=== PATIENT | female | born 1995 | race Caucasian/White ===

== ENCOUNTER 2017-09-19 05:33 | Emergency (ER) | payer MEDICAID ==
[~2017-09-19] VITALS: Ht 170.2 cm; Wt 67.0 kg
[~2017-09-19 05:33] MED LIST: ALBU1.25 NEB
[2017-09-19] MEDS ORDERED: SODIUM CHLORIDE 0.9% 1,000 ML IV ONE (05:36)
[2017-09-19] MEDS ORDERED: ALBUTEROL/IPRATROPIUM 2.5MG/0.5MG, 3 ML NPPB SCH (06:00)
[2017-09-19] MEDS ORDERED: SODIUM CHLORIDE FLUSH 10ML SYR IVF ONE (06:00)
[2017-09-19] MEDS ORDERED: methylPREDNISolone SOD SUCC 125 MG/2 ML IVP ONE (06:00)
[2017-09-19 06:01] LABS: HEMATOCRIT 43.8 % (34.6-47.8); HEMOGLOBIN 14.8 g/dL (11.7-16.4); WHITE BLOOD COUNT 7.5 x10^3/uL (3.4-10)
[2017-09-19 06:14] LABS: BLOOD UREA NITROGEN 8 mg/dL (7-18)
[2017-09-19] MEDS ORDERED: POTASSIUM CHLORIDE 10% 20 MEQ/15 ML UDC ONE (06:33)
[2017-09-19 06:56] LABS: RAPID INFLUENZA A POSITIVE (Negative); RAPID INFLUENZA B Negative (Negative)
[2017-09-19] MEDS ORDERED: POTASSIUM CHLORIDE 10% 40 MEQ/30 ML UDC PO ONE (07:00)
[2017-09-19 08:02] VITALS: BP 103/68
[2017-09-19] MEDS ORDERED: ACETAMINOPHEN 325 MG TABLET ONE ×2 (08:27→08:34)
[2017-09-19] MEDS ORDERED: ACETAMINOPHEN 325 MG TABLET PO ONE (08:30)
== END 2017-09-19 08:40 | disposition home or self-care (01) ==
LOC: ED 05:47
DX: J45.41 Moderate persistent asthma with (acute) exacerbation (principal); J09.X2 Influenza due to identified novel influenza A virus with other respiratory manifestations; E87.6 Hypokalemia
CPT/HCPCS: 36415; 71010; 80048; 82040; 83605; 85025; 87040; 87400; 93005; 94640; 96361; 96374; 99285; J2930; J7030; J7620

== ENCOUNTER 2018-09-21 23:18 | Emergency (ER) | payer MEDICAID ==
[~2018-09-21] VITALS: Ht 170.2 cm; Wt 70.1 kg
[2018-09-21] MEDS ORDERED: GLUCAGON 1 MG ONE (23:39)
[2018-09-22] MEDS ORDERED: GLUCAGON 1 MG IVPush ONE
[2018-09-22] MEDS ORDERED: SODIUM CHLORIDE FLUSH 10ML SYR IVF ONE
[2018-09-22] MEDS ORDERED: KETAMINE 50 MG/ML, 10ML ONE (00:20)
[2018-09-22] MEDS ORDERED: KETAMINE 100 MG/ML, 5ML IV ONE ×2 (00:30→01:30)
[2018-09-22 02:45] VITALS: BP 112/74
== END 2018-09-22 03:10 | disposition home or self-care (01) ==
LOC: ED 09-22 00:18
DX: T18.128A Food in esophagus causing other injury, initial encounter (principal); K20.9 Esophagitis, unspecified; Y93.89 Activity, other specified; Y99.8 Other external cause status; Y92.89 Other specified places as the place of occurrence of the external cause
CPT/HCPCS: 43247; 96374; 99152; 99285; J1610

== ENCOUNTER 2019-03-17 01:33 | Emergency (ER) | payer MEDICAID ==
[~2019-03-17] VITALS: Ht 170.2 cm; Wt 73.6 kg
[2019-03-17] MEDS ORDERED: IBUPROFEN 600 MG TABLET PO ONE (02:00)
[2019-03-17] MEDS ORDERED: IBUPROFEN 600 MG TABLET ONE (02:12)
--- NOTE | 2019-03-17 02:47 | NUR ---
pt d/c with d/c summary and script. all questions answered. pt ambulates to registration desk with steady gait for d/c home with mother. pt and family deny any other needs pertaining to this visit. vss at time of d/c.
[2019-03-17 02:51] VITALS: BP 128/84
== END 2019-03-17 03:01 | disposition home or self-care (01) ==
LOC: ED 02:45
DX: S69.91XA Unspecified injury of right wrist, hand and finger(s), initial encounter (principal); J45.909 Unspecified asthma, uncomplicated; W86.0XXA Exposure to domestic wiring and appliances, initial encounter; Y93.89 Activity, other specified; Y92.009 Unspecified place in unspecified non-institutional (private) residence as the place of occurrence of the external cause; Y99.8 Other external cause status
CPT/HCPCS: 93005; 99283

== ENCOUNTER 2019-04-11 23:31 | Emergency (ER) | payer MEDICAID ==
[~2019-04-11] VITALS: Ht 170.2 cm; Wt 73.3 kg
[2019-04-12 00:05] VITALS: BP 137/99
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
[2019-04-12] MEDS ORDERED: SODIUM CHLORIDE 0.9% 1,000ML IVBOLUS ONE (00:30)
[2019-04-12] MEDS ORDERED: ACETAMINOPHEN 500 MG TABLET PO ONE (00:30)
--- NOTE | 2019-04-12 00:33 | NUR ---
PT WITH IV PLACED AND AWAITING CTA
[2019-04-12 00:37] LABS: BASOPHILS # (AUTO) 0.03 x10^3/uL (0-0.1); BASOPHILS % (AUTO) 0 % (0-1); EOSINOPHILS # (AUTO) 1.23 x10^3/uL (0-0.4); EOSINOPHILS % (AUTO) 12 % (1-7); LYMPHOCYTES % (AUTO) 32 % (22-44); MD NO; MEAN CORPUSCULAR HEMOGLOBIN 27.7 pg (27.0-34.8); MEAN CORPUSCULAR HGB CONC 32.6 g/dL (32.4-35.8); MEAN PLATELET VOLUME 8.3 fL (7.4-10.4); MONOCYTES # (AUTO) 0.73 x10^3/uL (0.2-0.8); MONOCYTES % (AUTO) 7 % (2-9); NEUTROPHILS # (AUTO) 4.89 x10^3/uL (1.8-6.8); NEUTROPHILS % (AUTO) 48 % (42-75); PLATELET COUNT 316 x10^3/uL (130-400); RED BLOOD COUNT 5.74 x10^6/uL (3.82-5.3)
[2019-04-12 00:49] LABS: INTERNATIONAL NORMALIZED RATIO 0.94 (0.93-1.1); PROTHROMBIN TIME 9.9 Seconds (9.6-11.5)
[2019-04-12 00:50] LABS: ALBUMIN 4.1 g/dL (3.4-5.0); ANION GAP 7 mmol/L (5-15); CALCIUM 8.6 mg/dL (8.5-10.1); CHLORIDE 110 mmol/L (98-107); CREATININE 0.81 mg/dL (0.55-1.02)
[2019-04-12 00:54] LABS: TROPONIN I < 0.015 ng/mL (0.000-0.045)
[2019-04-12] MEDS ORDERED: ACETAMINOPHEN 500 MG TABLET ONE (01:07)
[2019-04-12] MEDS ORDERED: OMNIPAQUE 350 MG/ML, 100ML BOTTLE ONE (01:28)
--- NOTE | 2019-04-12 01:39 | NUR ---
PT BACK FROM CTA AND AWAITING ERP RECHECK.
== END 2019-04-12 02:26 | disposition home or self-care (01) ==
LOC: ED 04-12 00:10
DX: M79.661 Pain in right lower leg (principal); R07.89 Other chest pain; R05 Cough; J45.909 Unspecified asthma, uncomplicated
CPT/HCPCS: 36415; 71275; 80048; 82040; 83880; 84484; 84703; 85025; 85610; 85730; 93005; 93971; 99284; J7030; Q9967

== ENCOUNTER 2019-04-24 22:53 | Emergency (ER) | payer MEDICAID ==
[~2019-04-24] VITALS: Ht 170.2 cm; Wt 73.5 kg
[2019-04-24] MEDS ORDERED: ONDANSETRON 2MG/ML, 2ML IVPush ONE (23:30)
[2019-04-24] MEDS ORDERED: MORPHINE SULFATE 4 MG/ML, 1ML IVPush PRN (23:30)
[2019-04-24] MEDS ORDERED: SODIUM CHLORIDE 0.9% 1,000ML IVBOLUS ONE (23:30)
[2019-04-24] MEDS ORDERED: ACETAMINOPHEN 500 MG TABLET PO ONE (23:30)
[2019-04-24] MEDS ORDERED: SODIUM CHLORIDE FLUSH 10ML SYR IVF ONE (23:30)
[2019-04-24 23:38] LABS: BASOPHILS # (AUTO) 0.04 x10^3/uL (0-0.1); BASOPHILS % (AUTO) 0 % (0-1); EOSINOPHILS % (AUTO) 3 % (1-7); LYMPHOCYTES # (AUTO) 1.84 x10^3/uL (1-3.4); LYMPHOCYTES % (AUTO) 18 % (22-44); MD NO; MEAN CORPUSCULAR HEMOGLOBIN 28.1 pg (27.0-34.8); MEAN CORPUSCULAR HGB CONC 33.2 g/dL (32.4-35.8); MEAN CORPUSCULAR VOLUME 84.4 fL (80-100); MONOCYTES # (AUTO) 1.25 x10^3/uL (0.2-0.8); MONOCYTES % (AUTO) 12 % (2-9); NEUTROPHILS # (AUTO) 6.78 x10^3/uL (1.8-6.8); NEUTROPHILS % (AUTO) 67 % (42-75); PLATELET COUNT 302 x10^3/uL (130-400); RED BLOOD COUNT 5.19 x10^6/uL (3.82-5.3); RED CELL DISTRIBUTION WIDTH 13.8 % (9.6-15.2)
[2019-04-24 23:48] LABS: ALANINE AMINOTRANSFERASE 19 U/L (12-78); ALBUMIN 3.6 g/dL (3.4-5.0); ANION GAP 6 mmol/L (5-15); CALCIUM 8.8 mg/dL (8.5-10.1); CHLORIDE 108 mmol/L (98-107); CREATININE 0.86 mg/dL (0.55-1.02)
[2019-04-24] MEDS ORDERED: ONDANSETRON 2MG/ML, 2ML ONE (23:48)
[2019-04-24] MEDS ORDERED: ACETAMINOPHEN 500 MG TABLET ONE (23:48)
[2019-04-24 23:51] LABS: ALKALINE PHOSPHATASE 75 U/L (45-117); BILIRUBIN,TOTAL 0.8 mg/dL (0.2-1.0); TOTAL PROTEIN 7.6 g/dL (6.4-8.2)
[2019-04-25] MEDS ORDERED: RACEPINEPHRINE INH 2.25%, 0.5ML ONE (01:06)
[2019-04-25 01:51] VITALS: BP 115/62
[2019-04-25] MEDS ORDERED: OMNIPAQUE 350 MG/ML, 100ML BOTTLE ONE (04:15)
== END 2019-04-25 01:53 | disposition home or self-care (01) ==
LOC: ED 04-25 00:02
DX: K04.7 Periapical abscess without sinus (principal); J45.909 Unspecified asthma, uncomplicated
CPT/HCPCS: 36415; 70491; 80053; 83605; 84145; 85025; 96374; 99284; J2405; J7030; Q9967

== ENCOUNTER 2019-04-25 15:32 | Inpatient (IN) | payer MEDICAID ==
[~2019-04-25] VITALS: Ht 170.2 cm; Wt 68.6 kg
[2019-04-25] MEDS ORDERED: SODIUM CHLORIDE FLUSH 10ML SYR IVF ONE (16:30)
[2019-04-25 16:31] LABS: BASOPHILS # (AUTO) 0.02 x10^3/uL (0-0.1); BASOPHILS % (AUTO) 0 % (0-1); EOSINOPHILS # (AUTO) 0.57 x10^3/uL (0-0.4); EOSINOPHILS % (AUTO) 6 % (1-7); LYMPHOCYTES # (AUTO) 1.52 x10^3/uL (1-3.4); LYMPHOCYTES % (AUTO) 17 % (22-44); MD NO; MEAN CORPUSCULAR VOLUME 84.8 fL (80-100); MEAN PLATELET VOLUME 7.8 fL (7.4-10.4); MONOCYTES # (AUTO) 0.84 x10^3/uL (0.2-0.8); MONOCYTES % (AUTO) 9 % (2-9); NEUTROPHILS # (AUTO) 6.28 x10^3/uL (1.8-6.8); NEUTROPHILS % (AUTO) 68 % (42-75); PLATELET COUNT 312 x10^3/uL (130-400); RED BLOOD COUNT 5.07 x10^6/uL (3.82-5.3); RED CELL DISTRIBUTION WIDTH 13.6 % (9.6-15.2)
[2019-04-25 16:36] LABS: ALBUMIN 3.5 g/dL (3.4-5.0); ANION GAP 4 mmol/L (5-15); CALCIUM 8.9 mg/dL (8.5-10.1); CHLORIDE 110 mmol/L (98-107); CREATININE 0.82 mg/dL (0.55-1.02)
--- NOTE | 2019-04-25 17:09 | NUR ---
CALL DR. BRAGA WHEN ROOMED
[2019-04-25] MEDS ORDERED: methylPREDNISolone SOD SUCC 125 MG/2 ML IVP ONE (18:30)
[2019-04-25] MEDS ORDERED: CLINDAMYCIN PMX 600MG/50ML 50 ML IVPB ONE (18:30)
[2019-04-25] MEDS ORDERED: methylPREDNISolone SOD SUCC 125 MG/2 ML ONE (18:44)
[2019-04-25] MEDS ORDERED: IBUPROFEN 800 MG TABLET ONE (18:44)
[2019-04-25] MEDS ORDERED: CLINDAMYCIN PMX 600MG/50ML 50 ML ONE (18:44)
--- NOTE | 2019-04-25 18:57 | NUR ---
PT PRESENTING TO ER FOR JAW PAIN AND SWELLING WITH POSSIBLE ABSCESS UNDER TONGUE STARTING THURSDAY. SEEN HERE YESTERDAY AND INSTRUCTED TO SEE DENTIST. SEEN BY DENTIST AND ORAL SURGEON TODAY AND INSTRUCTED TO COME HERE FOR IV ABX. IV PLACED, LABS DRAWN IN PIT. CONNECTED TO MONITORING, TACHY HR, SLIGHT FEVER. PT MEDICATED WITH MOTRIN FROM FEVER AND PAIN CONTROL, ABX STARTED. AWAITING CT AND RESULTS FOR DISPO. AT BEDSIDE. CALL LIGHT WITHIN REACH
[2019-04-25] MEDS ORDERED: IBUPROFEN 800 MG TABLET PO ONE (19:00)
--- NOTE | 2019-04-25 19:11 | NUR ---
CT CALLED TO F/U ON TESTING DELAY, NO ANSWER. WILL CALL BACK
--- NOTE | 2019-04-25 19:34 | NUR ---
DELAY IN CT D/T ORAL SURGEON REQUESTING ADDITIONAL CT WITH, HOWEVER PT HAD CT WITH CONTRAST YESTERDAY. CALL OUT TO ORAL SURGEON TO SEE IF TEST NEEDS TO BE REPEATED OR THE ONE FROM YESTERDAY WILL WORK. PT REPORTING 3 CT SCANS IN THE LAST MONTH, PT ALSO BREAST FEEDING CURRENTLY
--- NOTE | 2019-04-25 19:47 | NUR ---
CONFIRMATION RECEIVED FROM ORAL SURGEON TO REPEAT CT WITH CONTRAST. CT UPDATED STATES PT WILL BE NEXT FOR TESTING
--- NOTE | 2019-04-25 20:10 | NUR ---
PT TAKEN TO CT
[2019-04-25] MEDS ORDERED: SODIUM CHLORIDE FLUSH 10ML SYR IVF PRN (20:30)
--- NOTE | 2019-04-25 20:37 | NUR ---
REPORT GIVEN TO ANITA RN, PT READY FOR TRANSPORT TO FLOOR
[2019-04-25 21:54] VITALS: BP 120/85
[2019-04-26] MEDS ORDERED: ACETAMINOPHEN 325 MG TABLET PO PRN
[2019-04-26] MEDS ORDERED: OXYcodone/APAP 5/325MG TABLET PO PRN
[2019-04-26] MEDS ORDERED: POLYETHYLENE GLYCOL 17 GM PACKET PO PRN
[2019-04-26] MEDS ORDERED: morphine SULFATE 10 MG/ML, 1ML IVPush PRN
[2019-04-26] MEDS: FAMOTIDINE 20 MG TABLET PO SCH ×3 (00:15→22:04)
[2019-04-26] MEDS: LACTATED RINGERS 1,000 ML IV SCH ×2 (00:15→15:17)
[2019-04-26] MEDS: CLINDAMYCIN PMX 600MG/50ML 50 ML IV SCH ×4 (00:15→18:34)
[2019-04-26] MEDS ORDERED: ALBUTEROL SULFATE 2.5 MG/3 ML NPPB PRN (00:30)
[2019-04-26 01:48] VITALS: BP 117/65
[2019-04-26 07:27] VITALS: BP 107/59
[2019-04-26 08:46] LABS: BASOPHILS # (AUTO) 0.01 x10^3/uL (0-0.1); BASOPHILS % (AUTO) 0 % (0-1); EOSINOPHILS % (AUTO) 0 % (1-7); LYMPHOCYTES # (AUTO) 0.75 x10^3/uL (1-3.4); LYMPHOCYTES % (AUTO) 8 % (22-44); MD NO; MEAN CORPUSCULAR HEMOGLOBIN 27.5 pg (27.0-34.8); MEAN CORPUSCULAR HGB CONC 32.5 g/dL (32.4-35.8); MEAN CORPUSCULAR VOLUME 84.4 fL (80-100); MEAN PLATELET VOLUME 7.9 fL (7.4-10.4); MONOCYTES # (AUTO) 0.12 x10^3/uL (0.2-0.8); MONOCYTES % (AUTO) 1 % (2-9); NEUTROPHILS # (AUTO) 8.49 x10^3/uL (1.8-6.8); NEUTROPHILS % (AUTO) 91 % (42-75); PLATELET COUNT 320 x10^3/uL (130-400); RED CELL DISTRIBUTION WIDTH 13.9 % (9.6-15.2)
[2019-04-26 08:53] LABS: ALBUMIN 3.2 g/dL (3.4-5.0); ANION GAP 7 mmol/L (5-15); CHLORIDE 110 mmol/L (98-107)
[2019-04-26 08:54] LABS: CREATININE 0.68 mg/dL (0.55-1.02)
[2019-04-26] MEDS ORDERED: methylPREDNISolone SOD SUCC 125 MG/2 ML IVPush SCH (09:00)
[2019-04-26] MEDS: ONDANSETRON 2MG/ML, 2ML IVPush PRN (13:32)
[2019-04-26 15:07] VITALS: BP 110/74
[2019-04-26] MEDS: IBUPROFEN 200 MG TABLET PO PRN (18:42)
[2019-04-26 19:02] VITALS: BP 106/65
[2019-04-27 00:56] VITALS: BP 105/70
[2019-04-27] MEDS: IBUPROFEN 200 MG TABLET PO PRN (01:12)
[2019-04-27] MEDS: CLINDAMYCIN PMX 600MG/50ML 50 ML IV SCH (04:02)
[2019-04-27 05:34] LABS: MEAN CORPUSCULAR HEMOGLOBIN 28.4 pg (27.0-34.8); MEAN CORPUSCULAR HGB CONC 33.1 g/dL (32.4-35.8); MEAN CORPUSCULAR VOLUME 85.9 fL (80-100); MEAN PLATELET VOLUME 8.4 fL (7.4-10.4); PLATELET COUNT 329 x10^3/uL (130-400); RED BLOOD COUNT 4.58 x10^6/uL (3.82-5.3); RED CELL DISTRIBUTION WIDTH 13.9 % (9.6-15.2)
[2019-04-27 05:43] LABS: CHLORIDE 109 mmol/L (98-107)
[2019-04-27 05:53] LABS: ALBUMIN 2.9 g/dL (3.4-5.0); ANION GAP 8 mmol/L (5-15); CALCIUM 8.3 mg/dL (8.5-10.1); CREATININE 0.63 mg/dL (0.55-1.02)
[2019-04-27 06:14] LABS: BASOPHILS % (AUTO) 0 % (0-1); EOSINOPHILS % (AUTO) 0 % (1-7); LYMPHOCYTES # (AUTO) 1.23 x10^3/uL (1-3.4); LYMPHOCYTES % (AUTO) 7 % (22-44); MD NO; MONOCYTES # (AUTO) 1.03 x10^3/uL (0.2-0.8); MONOCYTES % (AUTO) 6 % (2-9); NEUTROPHILS # (AUTO) 16.61 x10^3/uL (1.8-6.8); NEUTROPHILS % (AUTO) 88 % (42-75)
[2019-04-27 07:03] VITALS: BP 111/65
[2019-04-27] MEDS: ONDANSETRON 2MG/ML, 2ML IVPush PRN (07:17)
[2019-04-27] MEDS: FAMOTIDINE 20 MG TABLET PO SCH (09:59)
[2019-04-27] MEDS: LACTATED RINGERS 1,000 ML IV SCH (09:59)
[2019-04-27] MEDS: CLINDAMYCIN 300 MG CAPSULE PO SCH ×2 (10:55→18:03)
[2019-04-27 13:15] VITALS: BP 108/61
[2019-04-27] MEDS ORDERED: IBUP-1484 PO (17:08)
[2019-04-27] MEDS ORDERED: PRED20TA PO (17:08)
[2019-04-27] MEDS ORDERED: CLIN300C8 PO (17:08)
== END 2019-04-27 18:43 | disposition home or self-care (01) | DRG 159 ==
LOC: ED 20:19 → EDIP 20:24 → 3NW 20:50 → 3NE 21:33
PROVIDERS: ADMIT Family Medicine; ATTEND Family Medicine
DX: K12.2 Cellulitis and abscess of mouth (principal); J45.20 Mild intermittent asthma, uncomplicated; K21.9 Gastro-esophageal reflux disease without esophagitis; Z88.1 Allergy status to other antibiotic agents
CPT/HCPCS: 36415; 70487; 80048; 80069; 82040; 84703; 85025; 99285; G0378; J2405; J2930; J7120; J7512

== ENCOUNTER 2020-01-12 12:37 | Emergency (ER) | payer MEDICAID ==
[~2020-01-12] VITALS: Ht 170.2 cm; Wt 80.2 kg
[~2020-01-12 12:37] MED LIST changes: +CLIN300C8 PO; +IBUP-1902 PO; +PRED20TA PO
[2020-01-12] MEDS ORDERED: methylPREDNISolone SOD SUCC 125 MG/2 ML IV ONE (13:30)
[2020-01-12] MEDS ORDERED: ALBUTEROL/IPRATROPIUM 2.5MG/0.5MG, 3 ML NPPB SCH (13:30)
[2020-01-12] MEDS ORDERED: methylPREDNISolone SOD SUCC 125 MG/2 ML ONE (13:55)
[2020-01-12] MEDS ORDERED: ALBUTEROL/IPRATROPIUM 2.5MG/0.5MG, 3 ML ONE ×2 (13:56→16:43)
--- NOTE | 2020-01-12 15:23 | NUR ---
REPORT FROM PRAVEEN WHEELER, ASSUME CARE OF PT AT THIS TIME. PT RESTING, NAD. RESULTS BACK, PT FOR RECHECK.
[2020-01-12 16:36] VITALS: BP 135/93
--- NOTE | 2020-01-12 16:43 | NUR ---
CALL TO RT FOR 2ND TX.
--- NOTE | 2020-01-12 17:25 | NUR ---
PT AMBULATED IN DOE WITHOUT ANY S/S OF RESP DISTRESS. PULSE OX 96%.
== END 2020-01-12 18:30 | disposition home or self-care (01) ==
LOC: ED 18:19
DX: J45.51 Severe persistent asthma with (acute) exacerbation (principal); R51 Headache; R05 Cough; R94.31 Abnormal electrocardiogram [ECG] [EKG]; Z90.49 Acquired absence of other specified parts of digestive tract
CPT/HCPCS: 71045; 93005; 94640; 96372; 99284; J2930; 99283

== ENCOUNTER 2021-05-04 22:51 | Emergency (ER) | payer MEDICAID ==
[~2021-05-04] VITALS: Ht 170.2 cm; Wt 84.5 kg
[~2021-05-04 22:51] MED LIST changes: -CLIN300C8 PO; +CLIN300C9 PO
--- NOTE | 2021-05-05 00:12 | NUR ---
PT C/O OF LEFT SIDED NECK AND LEFT SIDE OF FACE SHARP PAIN SINCE 0 AFTER BREAST FEEDING. PT LEFT EYE NOTED TO BE RED IN SCLERA. CIRCULATION AND SENSATION INTACT IN AREAS. PAIN UPON MOVING NECK. PT ATTACHED TO MONITORS. VSS. CHARLIE. AT BEDSIDE. BED IN LOW POSITION, RAILS ENGAGED. CALL LIGHT ON LAP. TM
[2021-05-05] MEDS ORDERED: METHOCARBAMOL 750 MG TABLET ONE (00:29)
[2021-05-05] MEDS ORDERED: IBUPROFEN 800 MG TABLET ONE (00:29)
[2021-05-05] MEDS ORDERED: IBUPROFEN 800 MG TABLET PO ONE (00:30)
[2021-05-05] MEDS ORDERED: METHOCARBAMOL 750 MG TABLET PO ONE (00:30)
--- NOTE | 2021-05-05 00:36 | NUR ---
PT REFUSED ROBAXIN DUE TO WANTING TO WAIT UNTIL SHE CAN GET FORMULA FOR HER BABY IN THE MORNING.
[2021-05-05 00:41] VITALS: BP 111/63
--- NOTE | 2021-05-05 01:06 | NUR ---
Patient given discharge instructions and they have confirmed that they understand the instructions. Patient ambulatory with steady gait. NAD, all questions answered appropriately, denies additional needs at this time. No personal belongings left in room after discharge.
== END 2021-05-05 01:07 | disposition home or self-care (01) ==
LOC: ED 05-05 01:00
DX: S16.1XXA Strain of muscle, fascia and tendon at neck level, initial encounter (principal); J45.909 Unspecified asthma, uncomplicated; Z90.49 Acquired absence of other specified parts of digestive tract; X58.XXXA Exposure to other specified factors, initial encounter; Y93.89 Activity, other specified; Y92.89 Other specified places as the place of occurrence of the external cause; Y99.8 Other external cause status
CPT/HCPCS: 99283